=== PATIENT | male | born 1995 | race Caucasian/White ===

== ENCOUNTER 2019-02-12 17:43 | Emergency (ER) | payer OTHER ==
[~2019-02-12] VITALS: Ht 175.3 cm; Wt 68.5 kg
[2019-02-12 22:36] VITALS: BP 149/97
== END 2019-02-13 00:04 | disposition home or self-care (01) ==
LOC: ED 23:59
DX: R07.9 Chest pain, unspecified (principal); R42 Dizziness and giddiness; R11.0 Nausea
CPT/HCPCS: 36415; 71046; 80053; 84484; 85025; 93005; 99284